=== PATIENT | male | born 1945 | race Caucasian/White ===

== ENCOUNTER 2016-07-26 06:03 | Day surgery (SDC) | payer MEDICARE, OTHER ==
[~2016-07-26] VITALS: Ht 166.4 cm; Wt 101.4 kg
[~2016-07-26 06:03] MED LIST: ACET250T27 PO; ADV250 IH; ALBU8HFA4 IH; FOLI1 PO; FURO40 PO; KDUR10 PO; LEVE500T53 PO; MULT1TAB66 PO; SODIUM CHLORIDE 0.9% 1,000 ML IV ONE; SPIR50 PO; WARF5 PO
[2016-07-26] MEDS ORDERED: SODIUM CHLORIDE 0.9% 1,000 ML IV ONE (06:15)
[2016-07-26 06:35] LABS: BASOPHILS % (AUTO) 0.7 % (0.0-2.0); EOSINOPHILS % (AUTO) 8.3 % (1.0-6.0); HEMATOCRIT 46.1 % (41-53); HEMOGLOBIN 14.7 g/dL (13.5-17.5); LYMPHOCYTES % (AUTO) 18.3 % (22.0-44.0); MEAN CORPUSCULAR HEMOGLOBIN 28.5 pg (26.0-34.0); MEAN CORPUSCULAR HGB CONC 31.8 G/dL (31.0-37.0); MEAN CORPUSCULAR VOLUME 90 fL (80-100); MONOCYTES # (AUTO) 0.6 K/uL (0.1-1.0); MONOCYTES % (AUTO) 10.4 % (2.0-9.0); NEUTROPHILS # (AUTO) 3.6 K/uL (1.8-7.7); NEUTROPHILS % (AUTO) 62.3 % (40.0-70.0); PLATELET COUNT (AUTO) 216 K/uL (150-450); RED BLOOD CELL COUNT(AUTO) 5.14 MIL/uL (4.50-5.90); RED CELL DISTRIBUTION WIDTH 15.1 % (11.5-14.5); WHITE BLOOD COUNT (AUTO) 5.7 K/uL (4.5-11.0)
[2016-07-26 06:49] LABS: INR 3.8 (0.9-1.1); PROTHROMBIN TIME 40.4 SEC (9.4-11.6)
[2016-07-26 06:53] LABS: CALCIUM, TOTAL 8.5 mg/dL (8.8-10.5); CREATININE 1.3 mg/dL (0.60-1.30); POTASSIUM 5.5 mmol/L (3.5-5.1)
== END 2016-07-26 07:50 | disposition home or self-care (01) ==
LOC: CATHLAB 06:03
PROVIDERS: ATTEND Internal Medicine Cardiovascular Disease
DX: I48.91 Unspecified atrial fibrillation (principal); I08.3 Combined rheumatic disorders of mitral, aortic and tricuspid valves; I27.2 Other secondary pulmonary hypertension; J44.9 Chronic obstructive pulmonary disease, unspecified; I50.9 Heart failure, unspecified; F12.10 Cannabis abuse, uncomplicated; F15.21 Other stimulant dependence, in remission; K21.9 Gastro-esophageal reflux disease without esophagitis; Z72.89 Other problems related to lifestyle; Z90.49 Acquired absence of other specified parts of digestive tract; Z87.19 Personal history of other diseases of the digestive system; Z53.8 Procedure and treatment not carried out for other reasons
CPT/HCPCS: 36415; 80048; 85025; 85610; 85730; 93005; J7030

== ENCOUNTER 2016-07-31 06:14 | Day surgery (SDC) | payer MEDICARE, OTHER ==
[~2016-07-31] VITALS: Ht 165.1 cm; Wt 101.4 kg
[~2016-07-31 06:14] MED LIST changes: -ACET250T27 PO; +MIDAZOLAM HCL 2 MG/2 ML VIAL IVP ONE; -SODIUM CHLORIDE 0.9% 1,000 ML IV ONE
[2016-07-31] MEDS ORDERED: SODIUM CHLORIDE 0.9% 1,000 ML IV ONE ×2 (06:21→06:30)
[2016-07-31 06:44] LABS: BASOPHILS % (AUTO) 0.7 % (0.0-2.0); EOSINOPHILS % (AUTO) 5.8 % (1.0-6.0); HEMATOCRIT 47.7 % (41-53); HEMOGLOBIN 15.7 g/dL (13.5-17.5); LYMPHOCYTES # (AUTO) 1.1 K/uL (1.0-4.8); LYMPHOCYTES % (AUTO) 15.7 % (22.0-44.0); MEAN CORPUSCULAR HEMOGLOBIN 28.9 pg (26.0-34.0); MEAN CORPUSCULAR HGB CONC 32.9 G/dL (31.0-37.0); MEAN CORPUSCULAR VOLUME 88 fL (80-100); MONOCYTES # (AUTO) 0.8 K/uL (0.1-1.0); MONOCYTES % (AUTO) 10.4 % (2.0-9.0); NEUTROPHILS # (AUTO) 4.9 K/uL (1.8-7.7); NEUTROPHILS % (AUTO) 67.4 % (40.0-70.0); PLATELET COUNT (AUTO) 211 K/uL (150-450); RED BLOOD CELL COUNT(AUTO) 5.42 MIL/uL (4.50-5.90); RED CELL DISTRIBUTION WIDTH 15.1 % (11.5-14.5); WHITE BLOOD COUNT (AUTO) 7.3 K/uL (4.5-11.0)
[2016-07-31 06:58] LABS: CALCIUM, TOTAL 8.7 mg/dL (8.8-10.5); CREATININE 1.34 mg/dL (0.60-1.30); POTASSIUM 4.2 mmol/L (3.5-5.1)
[2016-07-31 07:00] LABS: INR 1.2 (0.9-1.1); PROTHROMBIN TIME 12.7 SEC (9.4-11.6)
[2016-07-31] MEDS ORDERED: MIDAZOLAM HCL 2 MG/2 ML VIAL ONE (07:34)
[2016-07-31] MEDS ORDERED: FentaNYL CITRATE-PF 100 MCG/2 ML VIAL ONE (07:34)
[2016-07-31 07:47] VITALS: BP 113/78
[2016-07-31] MEDS ORDERED: BENZOCAINE 20% 50 MCG/SPRAY 57 GM ONE (07:55)
[2016-07-31] MEDS ORDERED: BENZOCAINE 20% 30 ML SOLUTION TP ONE (08:03)
[2016-07-31 08:13] VITALS: BP 104/69
[2016-08-23] MEDS ORDERED: OMEP20 PO (12:41)
== END 2016-07-31 10:05 | disposition home or self-care (01) ==
LOC: CATHLAB 06:14
PROVIDERS: ATTEND Internal Medicine Cardiovascular Disease
DX: I48.91 Unspecified atrial fibrillation (principal); I49.5 Sick sinus syndrome; I10 Essential (primary) hypertension; I50.9 Heart failure, unspecified; J44.9 Chronic obstructive pulmonary disease, unspecified; I70.213 Atherosclerosis of native arteries of extremities with intermittent claudication, bilateral legs; M19.90 Unspecified osteoarthritis, unspecified site; F12.90 Cannabis use, unspecified, uncomplicated; E66.01 Morbid (severe) obesity due to excess calories; F15.21 Other stimulant dependence, in remission; F17.210 Nicotine dependence, cigarettes, uncomplicated; Z72.89 Other problems related to lifestyle; Z90.49 Acquired absence of other specified parts of digestive tract; Z86.19 Personal history of other infectious and parasitic diseases
CPT/HCPCS: 36415; 80048; 85025; 85610; 85730; 92960; 93005; 93312; J2250; J7030; J3010

== ENCOUNTER → 2016-08-23 | Outpatient (CLI) | payer MEDICARE ==
[~2016-08-23] VITALS: Ht 166.4 cm; Wt 100.0 kg
[~2016-08-23] MED LIST changes: -MIDAZOLAM HCL 2 MG/2 ML VIAL IVP ONE; +OMEP20 PO
[2016-08-23 12:38] VITALS: BP 121/69
== END | disposition home or self-care (01) ==
LOC: SRCNTR 12:29
PROVIDERS: ATTEND Internal Medicine Critical Care Medicine
DX: I48.91 Unspecified atrial fibrillation (principal); J44.1 Chronic obstructive pulmonary disease with (acute) exacerbation; I10 Essential (primary) hypertension; E78.5 Hyperlipidemia, unspecified; K70.30 Alcoholic cirrhosis of liver without ascites; Z72.89 Other problems related to lifestyle; Z87.891 Personal history of nicotine dependence
CPT/HCPCS: G0463

== ENCOUNTER → 2016-09-10 | Outpatient (CLI) | payer MEDICARE, OTHER ==
[~2016-09-10] MED LIST changes: -KDUR10 PO
== END | disposition home or self-care (01) ==
LOC: RADPV 10:53
PROVIDERS: ATTEND Internal Medicine Critical Care Medicine
DX: J98.11 Atelectasis (principal); I51.7 Cardiomegaly; I70.0 Atherosclerosis of aorta; J90 Pleural effusion, not elsewhere classified
CPT/HCPCS: 71020

== ENCOUNTER → 2016-09-27 | Outpatient (CLI) | payer MEDICARE, OTHER | END | disposition home or self-care (01) | LOC: RESP 14:41 | PROVIDERS: ATTEND Internal Medicine Critical Care Medicine | DX: J44.9 Chronic obstructive pulmonary disease, unspecified (principal) | CPT/HCPCS: 94010; 94726; 94727; 94729 ==

== ENCOUNTER 2017-02-07 19:23 | Inpatient (IN) | payer MEDICARE, OTHER ==
[~2017-02-07] VITALS: Ht 167.6 cm; Wt 107.1 kg
[2017-02-07] MEDS ORDERED: IPRATROPIUM BROMIDE 0.5 MG/2.5 ML NEB SOLUTION NEB ONE (20:00)
[2017-02-07] MEDS ORDERED: ALBUTEROL SULFATE 5 MG/ML 20 ML NEB SOLN [BULK] NEB ONE (20:00)
[2017-02-07] MEDS ORDERED: APIX5TAB PO (20:06)
[2017-02-07] MEDS ORDERED: 0.9% SODIUM CHLORIDE 15 ML NEB SOLUTION NEB ONE (20:22)
[2017-02-07 20:26] LABS: BASOPHILS % (AUTO) 0.1 % (0.0-2.0); EOSINOPHILS % (AUTO) 1.3 % (1.0-6.0); HEMATOCRIT 46.5 % (41-53); HEMOGLOBIN 15.1 g/dL (13.5-17.5); LYMPHOCYTES # (AUTO) 0.5 K/uL (1.0-4.8); LYMPHOCYTES % (AUTO) 7.4 % (22.0-44.0); MEAN CORPUSCULAR HEMOGLOBIN 27.3 pg (26.0-34.0); MEAN CORPUSCULAR HGB CONC 32.5 G/dL (31.0-37.0); MEAN CORPUSCULAR VOLUME 84 fL (80-100); MONOCYTES % (AUTO) 15.7 % (2.0-9.0); NEUTROPHILS # (AUTO) 4.9 K/uL (1.8-7.7); NEUTROPHILS % (AUTO) 75.5 % (40.0-70.0); PLATELET COUNT (AUTO) 193 K/uL (150-450); RED BLOOD CELL COUNT(AUTO) 5.53 MIL/uL (4.50-5.90); RED CELL DISTRIBUTION WIDTH 16.7 % (11.5-14.5)
[2017-02-07 20:38] LABS: CREATININE 1.58 mg/dL (0.60-1.30); POTASSIUM 4.6 mmol/L (3.5-5.1)
[2017-02-07 20:50] LABS: BILIRUBIN,TOTAL 0.8 mg/dL (0.1-1.0); TOTAL PROTEIN, SERUM 8.4 g/dL (6.4-8.2)
[2017-02-07] MEDS ORDERED: PredniSONE 20 MG TABLET PO ONE (21:15)
[2017-02-07] MEDS ORDERED: ACETAMINOPHEN 325 MG TABLET PO PRN ×2 (22:30→23:15)
[2017-02-07] MEDS ORDERED: ONDANSETRON HCL 4 MG/2 ML VIAL IVP PRN ×2 (22:30→23:15)
[2017-02-07] MEDS: CefTRIAXone 1 GM/DEXTROSE 50 ML IV SCH (23:00)
[2017-02-07 23:03] LABS: INFLUENZA TYPE B NEGATIVE FOR TYPE B (NEGATIVE)
[2017-02-07 23:06] LABS: INFLUENZA TYPE A POSITIVE FOR TYPE A (NEGATIVE)
[2017-02-07] MEDS ORDERED: OSELTAMIVIR PHOSPHATE 75 MG CAPSULE PO ONE (23:15)
[2017-02-07] MEDS ORDERED: MAGNESIUM HYDROXIDE SUSPENSION 30 ML UDCUP PO PRN (23:15)
[2017-02-07] MEDS ORDERED: MORPHINE SULFATE 2 MG/ML SYRINGE IVP PRN (23:15)
[2017-02-07] MEDS ORDERED: *CLINICAL-LEVOFLOXACIN IVPB DOSING CLINICAL ONE (23:15)
[2017-02-07] MEDS ORDERED: HYDROCODONE/ACETAMINOPHEN 5-325 MG TABLET PO PRN (23:15)
[2017-02-07] MEDS ORDERED: BISACODYL 10 MG RECTAL RECTAL SUPPOSITORY PR PRN (23:15)
[2017-02-07] MEDS ORDERED: ALBUTEROL SULFATE 2.5 MG/0.5 ML NEB SOLUTION NEB PRN (23:15)
[2017-02-07] MEDS ORDERED: ZOLPIDEM TARTRATE 5 MG TABLET PO PRN (23:15)
[2017-02-07] MEDS ORDERED: IPRATROPIUM BROMIDE 0.5 MG/2.5 ML NEB SOLUTION NEB PRN (23:15)
[2017-02-07] MEDS: OSELTAMIVIR PHOSPHATE 75 MG CAPSULE PO SCH (23:52)
[2017-02-08] MEDS: MethylPREDNISolone SOD SUCC 125 MG/2 ML VIAL IVP SCH ×5 (00:39→23:32)
[2017-02-08] MEDS: HEPARIN SODIUM,PORCINE 5,000 UNITS/ML VIAL SQ SCH ×4 (00:39→23:32)
[2017-02-08] MEDS: LEVOFLOXACIN 750 MG/D5% WATER 150 ML IV SCH (01:00)
[2017-02-08] MEDS: ALBUTEROL SULFATE 2.5 MG/0.5 ML NEB SOLUTION NEB SCH ×4 (02:45→21:36)
[2017-02-08] MEDS: IPRATROPIUM BROMIDE 0.5 MG/2.5 ML NEB SOLUTION NEB SCH ×4 (02:45→21:35)
[2017-02-08] MEDS: FOLIC ACID 1 MG TABLET PO SCH (09:24)
[2017-02-08] MEDS: OSELTAMIVIR PHOSPHATE 75 MG CAPSULE PO SCH ×2 (09:24→23:31)
[2017-02-08] MEDS: BENZONATATE 100 MG CAPSULE PO SCH ×3 (09:25→23:32)
[2017-02-08] MEDS: DOCUSATE SODIUM 100 MG CAPSULE PO SCH ×2 (09:25→23:31)
[2017-02-08] MEDS: PANTOPRAZOLE SODIUM 40 MG DR TABLET PO SCH (09:25)
[2017-02-08] MEDS: GuaiFENesin SR 600 MG ER TABLET PO SCH ×2 (09:26→23:31)
[2017-02-08] MEDS: APIXABAN 5 MG TABLET PO SCH ×2 (09:26→23:31)
[2017-02-08] MEDS: SPIRONOLACTONE 50 MG TABLET PO SCH (09:27)
[2017-02-08 09:44] VITALS: BP 143/83
[2017-02-08] MEDS: LevETIRAcetam 500 MG TABLET PO SCH (09:59)
[2017-02-08 12:22] LABS: GLUCOSE,POINT OF CARE 250 MG/DL (70-110)
[2017-02-08 12:31] VITALS: BP 125/78
[2017-02-08 15:37] VITALS: BP 112/70
[2017-02-08 17:28] LABS: GLUCOSE,POINT OF CARE 183 MG/DL (70-110)
[2017-02-08 20:06] VITALS: BP 108/68
[2017-02-08] MEDS: BUDESONIDE 0.5 MG/2 ML NEB SOLUTION NEB SCH (21:35)
[2017-02-08 22:12] VITALS: BP 124/78
[2017-02-08] MEDS ORDERED: SODIUM CHLORIDE 0.9% 250 ML IV ONE (23:54)
[2017-02-09] MEDS: CefTRIAXone 1 GM/DEXTROSE 50 ML IV SCH (00:06)
[2017-02-09 00:28] VITALS: BP 118/87
[2017-02-09] MEDS: IPRATROPIUM BROMIDE 0.5 MG/2.5 ML NEB SOLUTION NEB SCH ×4 (01:46→21:49)
[2017-02-09] MEDS: ALBUTEROL SULFATE 2.5 MG/0.5 ML NEB SOLUTION NEB SCH ×3 (01:46→20:00)
[2017-02-09] MEDS ORDERED: INFLUENZA VIRUS VACCINE QVS 2017-18 (3YR+)/PF 60 MCG/0.5 ML SYRINGE IM ONE (02:00)
[2017-02-09] MEDS ORDERED: PNEUMOCOCCAL VACCINE POLYVALENT 0.5 ML VIAL [PPSV23] IM ONE (02:00)
[2017-02-09] MEDS: HYDROCODONE/CHLORPHEN POLIS 10-8 MG/5 ML ORAL.SYG PO PRN (02:25)
[2017-02-09 06:00] VITALS: BP 105/74
[2017-02-09] MEDS: MethylPREDNISolone SOD SUCC 125 MG/2 ML VIAL IVP SCH ×2 (06:07→12:13)
[2017-02-09] MEDS: BUDESONIDE 0.5 MG/2 ML NEB SOLUTION NEB SCH ×2 (07:58→21:49)
[2017-02-09 08:18] VITALS: BP 123/78
[2017-02-09] MEDS ORDERED: LEVALBUTEROL HCL 0.63 MG/3 ML NEB SOLUTION NEB PRN (09:15)
[2017-02-09] MEDS ORDERED: DIGOXIN 250 MCG/ML 2 ML AMP IVP ONE ×3 (09:15→10:00)
[2017-02-09] MEDS: OSELTAMIVIR PHOSPHATE 75 MG CAPSULE PO SCH ×2 (09:25→21:22)
[2017-02-09] MEDS: LevETIRAcetam 500 MG TABLET PO SCH (09:25)
[2017-02-09] MEDS: SPIRONOLACTONE 50 MG TABLET PO SCH (09:25)
[2017-02-09] MEDS: PANTOPRAZOLE SODIUM 40 MG DR TABLET PO SCH (09:25)
[2017-02-09] MEDS: FOLIC ACID 1 MG TABLET PO SCH (09:26)
[2017-02-09] MEDS: GuaiFENesin SR 600 MG ER TABLET PO SCH ×2 (09:26→21:22)
[2017-02-09] MEDS: BENZONATATE 100 MG CAPSULE PO SCH ×3 (09:26→21:22)
[2017-02-09] MEDS: HEPARIN SODIUM,PORCINE 5,000 UNITS/ML VIAL SQ SCH ×2 (09:26→15:48)
[2017-02-09] MEDS: DOCUSATE SODIUM 100 MG CAPSULE PO SCH ×2 (09:26→21:22)
[2017-02-09] MEDS: APIXABAN 5 MG TABLET PO SCH ×2 (09:27→21:22)
[2017-02-09 11:49] VITALS: BP 122/80
[2017-02-09 15:17] VITALS: BP 138/96
[2017-02-09] MEDS: AMIODARONE HCL 200 MG TABLET PO SCH ×2 (15:48→21:22)
[2017-02-09 20:05] VITALS: BP 124/76
[2017-02-09] MEDS: LEVALBUTEROL HCL 0.63 MG/3 ML NEB SOLUTION NEB SCH (21:47)
[2017-02-10] VITALS (7 sets, daily range): BP systolic 97–148; BP diastolic 75–95
[2017-02-10] MEDS: HEPARIN SODIUM,PORCINE 5,000 UNITS/ML VIAL SQ SCH ×3 (00:50→15:52)
[2017-02-10] MEDS: LEVOFLOXACIN 750 MG/D5% WATER 150 ML IV SCH (00:50)
[2017-02-10] MEDS: MethylPREDNISolone SOD SUCC 125 MG/2 ML VIAL IVP SCH ×4 (00:51→18:06)
[2017-02-10] MEDS: ALBUTEROL SULFATE 2.5 MG/0.5 ML NEB SOLUTION NEB SCH ×6 (02:00→20:01)
[2017-02-10] MEDS: IPRATROPIUM BROMIDE 0.5 MG/2.5 ML NEB SOLUTION NEB SCH ×4 (02:32→20:01)
[2017-02-10] MEDS: LEVALBUTEROL HCL 0.63 MG/3 ML NEB SOLUTION NEB SCH ×4 (02:32→20:01)
[2017-02-10] MEDS: BUDESONIDE 0.5 MG/2 ML NEB SOLUTION NEB SCH ×2 (08:09→20:01)
[2017-02-10] MEDS: AMIODARONE HCL 200 MG TABLET PO SCH ×3 (08:33→20:58)
[2017-02-10] MEDS: SPIRONOLACTONE 50 MG TABLET PO SCH (08:33)
[2017-02-10] MEDS: BENZONATATE 100 MG CAPSULE PO SCH ×3 (08:33→20:57)
[2017-02-10] MEDS: OSELTAMIVIR PHOSPHATE 75 MG CAPSULE PO SCH ×2 (08:34→20:58)
[2017-02-10] MEDS: FOLIC ACID 1 MG TABLET PO SCH (08:34)
[2017-02-10] MEDS: LevETIRAcetam 500 MG TABLET PO SCH (08:34)
[2017-02-10] MEDS: PANTOPRAZOLE SODIUM 40 MG DR TABLET PO SCH (08:34)
[2017-02-10] MEDS: APIXABAN 5 MG TABLET PO SCH ×2 (08:34→20:57)
[2017-02-10] MEDS: DOCUSATE SODIUM 100 MG CAPSULE PO SCH ×2 (08:34→20:57)
[2017-02-10] MEDS: GuaiFENesin SR 600 MG ER TABLET PO SCH ×2 (08:35→20:58)
[2017-02-10 14:48] LABS: ABG A-A DIFF O2 39.5 mmHg (10-20.0); ABG BASE EXCESS 2.1 mmol/L (-2.0-3.0); ABG CARBOXYHEMOGLOBIN 1.7 % (0.0-1.5); ABG HCO3 25.5 mmol/L (22.0-26.0); ABG METHEMOGLOBIN 0.4 % (0.0-1.5); ABG OXYGEN CONTENT 17.5 mL/dL (15.0-23.0); ABG OXYHEMOGLOBIN 86.2 % (94.0-100.0); ABG PCO2 47 mmHg (35-45); ABG PH 7.378 (7.35-7.450); ABG TOTAL HEMOGLOBIN 14.5 G/dL (12.0-18.0); PO2, ARTERIAL BG 53.7 mmHg (75.0-83.0); SOURCE, BLOOD GAS ARTERIAL; TEMPERATURE, FAHRENHEIT, BG 98.3 FAHREN (96.0-98.6)
[2017-02-10 14:49] LABS: SITE, BLOOD GAS RT RADIAL
[2017-02-10 14:50] LABS: O2 DEVICE,BLOOD GAS ROOM AIR (ROOM AIR)
[2017-02-10] MEDS: DILTIAZEM HCL CD 120 MG ER CAPSULE PO SCH (20:58)
[2017-02-11] MEDS: HEPARIN SODIUM,PORCINE 5,000 UNITS/ML VIAL SQ SCH ×3 (00:38→15:21)
[2017-02-11] MEDS: MethylPREDNISolone SOD SUCC 125 MG/2 ML VIAL IVP SCH ×4 (00:39→18:28)
[2017-02-11] MEDS: ALBUTEROL SULFATE 2.5 MG/0.5 ML NEB SOLUTION NEB SCH ×4 (02:00→20:00)
[2017-02-11] MEDS: IPRATROPIUM BROMIDE 0.5 MG/2.5 ML NEB SOLUTION NEB SCH ×4 (02:59→21:24)
[2017-02-11] MEDS: LEVALBUTEROL HCL 0.63 MG/3 ML NEB SOLUTION NEB SCH ×4 (02:59→21:24)
[2017-02-11 03:11] VITALS: BP 122/77
[2017-02-11 07:17] LABS: CREATININE 1.42 mg/dL (0.60-1.30); POTASSIUM 5.9 mmol/L (3.5-5.1)
[2017-02-11 07:18] LABS: EOSINOPHILS % (AUTO) 0.02 % (1.0-6.0); HEMATOCRIT 44.5 % (41-53); LYMPHOCYTES # (AUTO) 0.4 K/uL (1.0-4.8); MEAN CORPUSCULAR HEMOGLOBIN 26.6 pg (26.0-34.0); MEAN CORPUSCULAR VOLUME 86 fL (80-100); MONOCYTES # (AUTO) 0.4 K/uL (0.1-1.0); MONOCYTES % (AUTO) 3.1 % (2.0-9.0); NEUTROPHILS # (AUTO) 11.1 K/uL (1.8-7.7); NEUTROPHILS % (AUTO) 93.9 % (40.0-70.0); PLATELET COUNT (AUTO) 140 K/uL (150-450); RED BLOOD CELL COUNT(AUTO) 5.19 MIL/uL (4.50-5.90); RED CELL DISTRIBUTION WIDTH 16.7 % (11.5-14.5)
[2017-02-11 07:30] VITALS: BP 142/86
[2017-02-11] MEDS: AMIODARONE HCL 200 MG TABLET PO SCH ×3 (08:34→21:42)
[2017-02-11] MEDS: DILTIAZEM HCL CD 120 MG ER CAPSULE PO SCH ×2 (08:34→21:43)
[2017-02-11] MEDS: LevETIRAcetam 500 MG TABLET PO SCH (08:34)
[2017-02-11] MEDS: BENZONATATE 100 MG CAPSULE PO SCH ×3 (08:34→21:42)
[2017-02-11] MEDS: FOLIC ACID 1 MG TABLET PO SCH (08:34)
[2017-02-11] MEDS: SPIRONOLACTONE 50 MG TABLET PO SCH (08:37)
[2017-02-11] MEDS: GuaiFENesin SR 600 MG ER TABLET PO SCH ×2 (08:37→21:42)
[2017-02-11] MEDS: APIXABAN 5 MG TABLET PO SCH ×2 (08:37→21:43)
[2017-02-11] MEDS: PANTOPRAZOLE SODIUM 40 MG DR TABLET PO SCH (08:37)
[2017-02-11] MEDS: OSELTAMIVIR PHOSPHATE 75 MG CAPSULE PO SCH ×2 (08:37→21:42)
[2017-02-11] MEDS: DOCUSATE SODIUM 100 MG CAPSULE PO SCH ×2 (08:38→21:43)
[2017-02-11] MEDS: BUDESONIDE 0.5 MG/2 ML NEB SOLUTION NEB SCH ×2 (08:57→21:24)
[2017-02-11 10:55] VITALS: BP 137/86
[2017-02-11] MEDS ORDERED: SODIUM POLYSTYRENE SULFONATE 15 GM/60 ML SUSPENSION BOTTLE PO ONE ×2 (12:15→18:00)
[2017-02-11 19:27] VITALS: BP 132/75
[2017-02-11 23:23] VITALS: BP 138/88
[2017-02-12] MEDS: HEPARIN SODIUM,PORCINE 5,000 UNITS/ML VIAL SQ SCH ×3 (00:33→16:00)
[2017-02-12] MEDS: MethylPREDNISolone SOD SUCC 125 MG/2 ML VIAL IVP SCH ×4 (00:33→17:44)
[2017-02-12] MEDS: LEVOFLOXACIN 750 MG/D5% WATER 150 ML IV SCH (00:34)
[2017-02-12] MEDS: ALBUTEROL SULFATE 2.5 MG/0.5 ML NEB SOLUTION NEB SCH ×4 (02:00→20:00)
[2017-02-12] MEDS: IPRATROPIUM BROMIDE 0.5 MG/2.5 ML NEB SOLUTION NEB SCH ×4 (02:04→20:01)
[2017-02-12] MEDS: LEVALBUTEROL HCL 0.63 MG/3 ML NEB SOLUTION NEB SCH ×4 (02:04→20:01)
[2017-02-12 06:13] VITALS: BP 130/77
[2017-02-12 07:04] VITALS: BP 126/94
[2017-02-12 07:36] LABS: EOSINOPHILS % (AUTO) 0 % (1.0-6.0); HEMATOCRIT 43.1 % (41-53); HEMOGLOBIN 13.8 g/dL (13.5-17.5); LYMPHOCYTES # (AUTO) 0.3 K/uL (1.0-4.8); LYMPHOCYTES % (AUTO) 3.2 % (22.0-44.0); MEAN CORPUSCULAR HEMOGLOBIN 27.3 pg (26.0-34.0); MEAN CORPUSCULAR VOLUME 85 fL (80-100); MONOCYTES # (AUTO) 0.4 K/uL (0.1-1.0); MONOCYTES % (AUTO) 4.6 % (2.0-9.0); NEUTROPHILS # (AUTO) 8.4 K/uL (1.8-7.7); PLATELET COUNT (AUTO) 145 K/uL (150-450); RED BLOOD CELL COUNT(AUTO) 5.05 MIL/uL (4.50-5.90); RED CELL DISTRIBUTION WIDTH 17.2 % (11.5-14.5)
[2017-02-12 07:40] LABS: CALCIUM, TOTAL 8.2 mg/dL (8.8-10.5); CREATININE 1.28 mg/dL (0.60-1.30); POTASSIUM 4.7 mmol/L (3.5-5.1)
[2017-02-12] MEDS: AMIODARONE HCL 200 MG TABLET PO SCH (07:55)
[2017-02-12] MEDS: FOLIC ACID 1 MG TABLET PO SCH (07:56)
[2017-02-12] MEDS: BENZONATATE 100 MG CAPSULE PO SCH ×3 (07:56→20:41)
[2017-02-12] MEDS: OSELTAMIVIR PHOSPHATE 75 MG CAPSULE PO SCH ×2 (07:56→20:40)
[2017-02-12] MEDS: LevETIRAcetam 500 MG TABLET PO SCH (07:56)
[2017-02-12] MEDS: APIXABAN 5 MG TABLET PO SCH (07:57)
[2017-02-12] MEDS: PANTOPRAZOLE SODIUM 40 MG DR TABLET PO SCH (07:57)
[2017-02-12] MEDS: DILTIAZEM HCL CD 120 MG ER CAPSULE PO SCH ×2 (07:57→20:40)
[2017-02-12] MEDS: GuaiFENesin SR 600 MG ER TABLET PO SCH ×2 (07:57→20:40)
[2017-02-12] MEDS: DOCUSATE SODIUM 100 MG CAPSULE PO SCH ×2 (08:02→20:40)
[2017-02-12 08:11] LABS: NEUTROPHILS % (AUTO) 92.2 % (40.0-70.0)
[2017-02-12] MEDS: BUDESONIDE 0.5 MG/2 ML NEB SOLUTION NEB SCH ×2 (08:46→20:01)
[2017-02-12] MEDS ORDERED: SPIRONOLACTONE 50 MG TABLET PO SCH (09:00)
[2017-02-12 10:56] VITALS: BP 129/88
[2017-02-12] MEDS ORDERED: DILT-39 PO (12:39)
[2017-02-12] MEDS ORDERED: GUAIF600 PO (12:40)
[2017-02-12] MEDS ORDERED: OSEL75 PO (12:42)
[2017-02-12] MEDS ORDERED: CIP250 PO (12:42)
[2017-02-12] MEDS ORDERED: ADV250 IH (12:43)
[2017-02-12] MEDS ORDERED: PRED20 PO (12:46)
[2017-02-12] MEDS ORDERED: AMIO200T44 PO (12:47)
[2017-02-12 15:08] VITALS: BP 155/77
[2017-02-12] MEDS: HYDROCODONE/CHLORPHEN POLIS 10-8 MG/5 ML ORAL.SYG PO PRN (16:19)
[2017-02-12 19:53] VITALS: BP 114/74
[2017-02-12] MEDS ORDERED: AMIODARONE HCL 200 MG TABLET PO SCH (21:00)
[2017-02-12] MEDS ORDERED: APIXABAN 2.5 MG TABLET PO SCH (21:00)
[2017-02-13] MEDS ORDERED: LEVOFLOXACIN 750 MG/D5% WATER 150 ML IV SCH (01:00)
== END 2017-02-12 23:00 | disposition home or self-care (01) | DRG 193 ==
LOC: EMS 19:25 → AHU 02-08 06:54 → 5S 02-08 21:30
PROVIDERS: ADMIT Internal Medicine; ATTEND Internal Medicine
DX: J10.00 Influenza due to other identified influenza virus with unspecified type of pneumonia (principal); J96.20 Acute and chronic respiratory failure, unspecified whether with hypoxia or hypercapnia; E87.5 Hyperkalemia; J44.0 Chronic obstructive pulmonary disease with (acute) lower respiratory infection; E66.01 Morbid (severe) obesity due to excess calories; I48.0 Paroxysmal atrial fibrillation; I11.0 Hypertensive heart disease with heart failure; J45.901 Unspecified asthma with (acute) exacerbation; I50.9 Heart failure, unspecified; E11.9 Type 2 diabetes mellitus without complications; G40.909 Epilepsy, unspecified, not intractable, without status epilepticus; J44.1 Chronic obstructive pulmonary disease with (acute) exacerbation; M47.9 Spondylosis, unspecified; K74.60 Unspecified cirrhosis of liver; F12.90 Cannabis use, unspecified, uncomplicated; Z79.01 Long term (current) use of anticoagulants; Z79.899 Other long term (current) drug therapy; Z90.49 Acquired absence of other specified parts of digestive tract; Z68.38 Body mass index [BMI] 38.0-38.9, adult; Z87.81 Personal history of (healed) traumatic fracture
CPT/HCPCS: 71250; 82805; 82962; 84132; 87804; 90471; 93005; 93306; 94640; 94644; 99285; J0696; J1160; J1644; J1956; J2930; J7050

== ENCOUNTER → 2017-02-26 | Outpatient (CLI) | payer MEDICARE, OTHER ==
[~2017-02-26] VITALS: Ht 166.4 cm; Wt 103.0 kg
[~2017-02-26] MED LIST changes: +AMIO200T44 PO; +APIX5TAB PO; +CIP250 PO; +DILT-39 PO; +GUAIF600 PO; +OSEL75 PO; +PRED20 PO; -SPIR50 PO; -WARF5 PO
[2017-02-26 12:33] VITALS: BP 113/69
== END | disposition home or self-care (01) ==
LOC: SRCNTR 12:33
PROVIDERS: ATTEND Internal Medicine Critical Care Medicine
DX: J44.1 Chronic obstructive pulmonary disease with (acute) exacerbation (principal); I10 Essential (primary) hypertension; I48.2 Chronic atrial fibrillation; K74.60 Unspecified cirrhosis of liver; E78.5 Hyperlipidemia, unspecified; G47.33 Obstructive sleep apnea (adult) (pediatric)
CPT/HCPCS: G0463